=== PATIENT | male | born 1995 | race Caucasian/White ===

== ENCOUNTER 2018-02-13 02:18 | Emergency (ER) | payer SELFPAY ==
[2018-02-13] MEDS ORDERED: VASOPRESSIN 20 UNITS/ML VIAL ONE (02:39)
[2018-02-13] MEDS ORDERED: SODIUM BICARBONATE 8.4% INJ 150 MEQ in DEXTROSE 5% IN WATE 1000ML INJ 1,000 ML IV SCH ×2 (02:40)
--- NOTE | 2018-02-13 03:24 | PD ---
HPI . collapse Chief Complaint: unresponsive cardiac arrest Time Seen by Provider: 02:29 Travel History International Travel<30 days: No Contact w/Intl Traveler<30days: No Traveled to known affect area: No History of Present Illness HPI pt is a 22 yr old male who was reportedly at a green party and came back to his dorm and felt nauseous then vomited and then girlfriend hear him gasping for air , called dorm security who started CPR and called [facility] 911 , pt was given IV access and EPI HCO3 and Narcan and then CPR conitnues 1 shock given for v-fib and pt arrives unresponsive cardiac stand still and I intubate immediately , and CPR continues , I order Epi HCO3 x3 AMP and calcium Chloride and CPR continued US bedside cardiac standstill, then CPR then on monitor V-FIB and pt unsynchronized shocked . brief return of sinus rhythm and pulse palpated and US showed organized . Then patient lost is pulse and amiodarone 300mg IVp and Lidocaine 100mg IVP and CPR conitnued and then rhythm analysis showed VFIB another amiodarone 150 mg ivp . CPR V-Fib pt unsynchronized shock CPR restarted and this pattern went on and then multiple episodes of V-FIB arrest no pulse and shocked Vasopressin 40 U and code CPR continues for another 30 minutes 70 minutes CPR total time from pt arrested in dorm . Resustation efforts became futile after all meds possible given, Then tPa 50 ml to attempt to dissolve massive PE if that could be the cause of sudden arrest, No response , another round of CPR and EPI HCO3 given another 10 minutes of CPR and then CODE called off time of 2:53AM [facility] Social History Tobacco Use: No Allergies-Medications (Allergen,Severity, Reaction): Coded Allergies: No Allergy Information Available (Unverified , 02/13/18) Reported Meds & Prescriptions Reported Meds & Active Scripts Active Active Prescriptions or Reported Medications Unobtainable Review of Systems ROS Limitations: Clinical Condition (cardiac arrest), Unresponsive Physical Exam Narrative GENERAL: unresponsive pupils 3 mm non reactive SKIN: Warm and dry. HEAD: Atraumatic. Normocephalic. EYES: Pupils equal and round. No scleral icterus. No injection or drainage. 3mm non reactive not dilated ENT: No nasal bleeding or discharge. Mucous membranes pink and moist. NECK: Trachea midline. No JVD. CARDIOVASCULAR: no cardiac activity then V FIB episodes and pulseless RESPIRATORY: No spontaneous resp effort , needs immediate intubation by this MD GASTROINTESTINAL: Abdomen soft, nondistended. Hepatic and splenic margins not palpable. no signs of trauma MUSCULOSKELETAL: Extremities no signs of trauma, or edema. No obvious deformities. NEUROLOGICAL: no signs of mentation completely unresponsive , intubated without sedation no gag reflex Psych obtunded unresponsive Data Data Last Documented VS Vital Signs Date Time Temp Pulse Resp B/P (MAP) Pulse Ox O2 Delivery O2 Flow Rate FiO2 02/13/18 02:15 100 Orders Orders Dextrose 5% In Wate... W/Sodium Bicarbon (02/13/18 02:40) Vasopressin Inj (Pitressin Inj) (02/13/18 02:39) Complete Blood Count With Diff (02/13/18 05:13) Comprehensive Metabolic Panel (02/13/18 05:13) Troponin I (02/13/18 05:13) Lipase (02/13/18 05:13) Thyroid Stimulating Hormone (02/13/18 05:13) Alcohol (Ethanol) (02/13/18 05:13) Labs Laboratory Tests Test 02/13/18 05:18 White Blood Count 11.2 TH/MM3 Red Blood Count 5.60 MIL/MM3 Hemoglobin 16.6 GM/DL Hematocrit 50.8 % Mean Corpuscular Volume 90.7 FL Mean Corpuscular Hemoglobin 29.6 PG Mean Corpuscular Hemoglobin Concent 32.7 % Red Cell Distribution Width 13.3 % Platelet Count 279 TH/MM3 Mean Platelet Volume 9.2 FL CBC Comment AUTO DIFF Differential Total Cells Counted 100 Neutrophils % (Manual) 13 % Band Neutrophils % 1 % Lymphocytes % 82 % Monocytes % 2 % Eosinophils % 2 % Neutrophils # (Manual) 1.6 TH/MM3 Differential Comment FINAL DIFF MANUAL Platelet Estimate NORMAL Platelet Morphology Comment NORMAL Blood Urea Nitrogen 16 MG/DL Creatinine 1.28 MG/DL Random Glucose 122 MG/DL Total Protein 7.8 GM/DL Albumin 4.2 GM/DL Calcium Level 8.7 MG/DL Alkaline Phosphatase 85 U/L Aspartate Amino Transf (AST/SGOT) 228 U/L Alanine Aminotransferase (ALT/SGPT) 294 U/L Total Bilirubin 0.3 MG/DL Sodium Level 145 MEQ/L Potassium Level 4.2 MEQ/L Chloride Level 103 MEQ/L Carbon Dioxide Level 23.6 MEQ/L Anion Gap 18 MEQ/L Estimat Glomerular Filtration Rate 72 ML/MIN Troponin I LESS THAN 0.02 NG/ML Lipase 89 U/L Thyroid Stimulating Hormone 3rd Gen 18.400 uIU/ML Ethyl Alcohol Level 99 MG/DL [facility] Medical Decision Making Medical Screen Exam Complete: Yes Emergency Medical Condition: Yes Differential Diagnosis intoxant to cardiac arrest vs cardiomyopathy vs resp arrest to cardiac arrest electrolyte abnormality to vfib arrest other vs dilated cardiomyopathy causing v fib arrest resistant to all meds Narrative Course Pt arrives unresponsive cardiac stand still and I intubate immediately , and CPR continues , I order KAMARI HCO3 x3 AMP and calcium Chloride and CPR continued US bedside cardiac standstill, then CPR then on monitor V-FIB and pt unsynchronized shocked . brief return of sinus rhythm and pulse palpated and US showed organized . Then patient lost is pulse and amiodarone 300mg IVp and Lidocaine 100mg IVP and CPR conitnued and then rhythm analysis showed VFIB pt unsynchronized shock second dose of amiodarone 150 mg ivp CPR restarted and this pattern went on no organized rhythm , then multiple episodes of V-FIB arrest no pulse and shocked --> Vasopressin 40 U and then HCO3 drip started total of 8 amp of HCO3 and defibrillated 6 times . CPR multiple episodes of V-FIB arrest no pulse and shocked Vasopressin 40 U and code CPR continues for 70 minutes CPR total time from pt arrested in dorm . Resusitation efforts became futile after all meds possible given, Then tPa 50 ml to attempt to dissolve massive PE if that could be the cause of sudden cardiac arrest --> No response. another round of CPR and EPI HCO3 given another 10 minutes of CPR and then CODE called off time of 2:53AM code called off at 250 AM and family called by phone by this Critical Care Narrative 45 minutes of critical care time as above Procedures Procedure Narrative CPR and 45 minutes of critical care time described above Diagnosis Primary Impression: Cardiac arrest Additional Impression: Ventricular fibrillation seen on space [employer] Scripts Unable to Obtain Active Prescriptions or Reported Meds Disposition: 20 Wale Jay MD February 13, 2018 03:24
[2018-02-13 05:28] LABS: HEMATOCRIT 50.8 % (39.0-51.0); HEMOGLOBIN 16.6 GM/DL (13.0-17.0); MEAN CELL VOLUME 90.7 FL (80.0-100.0); MEAN CORPUSCULAR HEMOGLOBIN 29.6 PG (27.0-34.0); MEAN CORPUSCULAR HGB CONC 32.7 % (32.0-36.0); MEAN PLATELET VOLUME 9.2 FL (7.0-11.0); PLATELET COUNT 279 TH/MM3 (150-450); RED CELL DISTRIBUTION WIDTH 13.3 % (11.6-17.2); WHITE BLOOD COUNT 11.2 TH/MM3 (4.0-11.0)
[2018-02-13 05:54] LABS: BANDS 1 % (0-6); LYMPHOCYTES 82 % (9-44); MONOCYTES 2 % (0-8); NEUTROPHIL # MANUAL DIFF 1.6 TH/MM3 (1.8-7.7); POLYS (SEG NEUTROPHILS) 13 % (16-70)
[2018-02-13 06:09] LABS: ALKALINE PHOSPHATASE 85 U/L (45-117); TOTAL BILIRUBIN ADULT 0.3 MG/DL (0.2-1.0); TOTAL PROTEIN 7.8 GM/DL (6.4-8.2); TROPONIN I LESS THAN 0.02 NG/ML (0.02-0.05)
[2018-02-13 06:12] LABS: ALBUMIN 4.2 GM/DL (3.4-5.0); ALT (GPT) 294 U/L (9-52); AST (GOT) 228 U/L (15-39); BICARBONATE 23.6 MEQ/L (21.0-32.0); BLOOD UREA NITROGEN 16 MG/DL (7-18); CALCIUM 8.7 MG/DL (8.5-10.1); CHLORIDE 103 MEQ/L (98-107); CREATININE 1.28 MG/DL (0.60-1.30); GLOMERULAR FILTRATION RATE 72 ML/MIN (>89); GLUCOSE,RANDOM 122 MG/DL (74-106); SODIUM (NA) 145 MEQ/L (136-145)
== END 2018-02-13 11:24 | disposition expired ==
LOC: NEPE 02:18 → NEPI 11:24
DX: I46.9 Cardiac arrest, cause unspecified (principal); I49.01 Ventricular fibrillation
CPT/HCPCS: 31500; 80053; 80307; 83690; 84443; 84484; 85007; 85027; 92950